=== PATIENT | female | born 1935 | race Caucasian/White ===

== ENCOUNTER 2020-08-24 17:00 | Emergency (ER) | payer MEDICARE, MEDICAID ==
[~2020-08-24] VITALS: Ht 167.6 cm; Wt 52.2 kg
[2020-08-24] MEDS ORDERED: ASPIRIN CHEWABL81 MG PO (17:13)
[2020-08-24] MEDS ORDERED: LIPITOR20 MG PO (17:14)
[2020-08-24] MEDS ORDERED: VITAMIN D350 MC2 PO (17:19)
[2020-08-24] MEDS ORDERED: CRANBERRY CAPSULE PO (17:22)
[2020-08-24] MEDS ORDERED: LANSOPRAZOLE30 M2 PO (17:22)
[2020-08-24] MEDS ORDERED: MELATONIN5 M1 PO (17:23)
[2020-08-24] MEDS ORDERED: LOPRESSOR25 MG PO (17:28)
[2020-08-24] MEDS ORDERED: TRINTELLIX10 MG PO (17:29)
[2020-08-24] MEDS ORDERED: POTASSIUM CHLO10 ME4 PO (17:29)
[2020-08-24 17:30] LABS: BASO % 0.4 % (0.0-1.0); EOS % 0.3 % (1.0-4.0); HEMATOCRIT 43.4 % (37.0-47.0); LYMPH # 0.8 10*3/uL (1.3-4.4); MEAN CELL VOLUME 89.3 fl (81.0-99.0); MEAN CORPUSCULAR HGB 29.6 pg (27.0-31.0); MEAN CORPUSCULAR HGB CONC 33.2 g/dl (33.0-37.0); MEAN PLATELET VOLUME 11.3 fl (9.6-12.3); MONO # 0.4 10*3/uL (0.1-1.0); MONO % 4.8 % (3.0-9.0); NEUT # 6.7 10*3/uL (2.3-7.9); NEUT % 84.2 % (47.0-73.0); PLATELET COUNT AUTOMATED 223 10*3/uL (130-400); RED BLOOD COUNT 4.86 10*6/uL (4.10-5.10); RED CELL DISTRI WIDTH 14.2 % (0-14.5); WHITE BLOOD COUNT 7.9 10*3/uL (4.8-10.8)
[2020-08-24] MEDS ORDERED: VITAMIN B COMP1 EAC2 PO (17:32)
[2020-08-24] MEDS ORDERED: SEPTDS PO (17:34)
[2020-08-24] MEDS ORDERED: 24 HOUR ALLER15.8 ML NAS (17:35)
[2020-08-24] MEDS ORDERED: NAMENDA10 MG PO (17:40)
[2020-08-24 17:41] LABS: ACT PARTIAL THROMBO TIME 25.5 SECONDS (20.0-32.1)
[2020-08-24] MEDS ORDERED: RIVASTIGMINE TAR6 M1 PO (17:41)
[2020-08-24] MEDS ORDERED: TYLENOL EXTRA500 MG PO (17:43)
[2020-08-24] MEDS ORDERED: ASPERCREME76.5 GM T (17:44)
[2020-08-24 17:45] LABS: ALBUMIN 3.9 gm/dl (3.1-4.5); ALKALINE PHOSPHATASE 86 U/L (45-117); BUN 12 mg/dl (7-24); CHLORIDE 105 mmol/L (98-107); CREATININE 1.08 mg/dL (0.55-1.02); LIPASE 90 U/L (73-393); POTASSIUM 3.6 mmol/L (3.5-5.1); SGOT/AST 25 IU/L (3-35); SGPT/ALT 22 U/L (12-78); SODIUM 139 mmol/L (136-145); TOTAL PROTEIN 7.8 gm/dL (6.4-8.2)
[2020-08-24] MEDS ORDERED: MILK OF MA400 MG/52 PO (17:45)
[2020-08-24] MEDS ORDERED: TRAMADOL HCL50 MG PO (17:46)
[2020-08-24 17:48] LABS: TROPONIN I < 0.015 ng/ml (<0.045)
[2020-08-24 20:00] LABS: BILIRUBIN 1+ (Negative); BLOOD Negative (Negative); CLARITY Cloudy (Clear); COLOR Dark Yellow (Yellow); GLUCOSE Negative (Negative); KETONE 2+ (Negative); LEUKO ESTERASE 1+ (Negative); NITRITE Negative (Negative); SPECIFIC GRAVITY 1.025 (1.001-1.030)
[2020-08-24 20:10] LABS: BACTERIA 2+; EPITHELIAL CELLS 16-20; MUCOUS TRACE; RBC 0-2 rbc/hpf (0-2)
== END 2020-08-24 21:38 | disposition admitted as inpatient to this hospital (09) ==
LOC: ED 17:00
PROVIDERS: Emergency Medicine
DX: F03.90 Unspecified dementia, unspecified severity, without behavioral disturbance, psychotic disturbance, mood disturbance, and anxiety (principal); Z88.8 Allergy status to other drugs, medicaments and biological substances; Z20.828 Contact with and (suspected) exposure to other viral communicable diseases